=== PATIENT | male | born 1970 | race Caucasian/White ===

== ENCOUNTER 2018-01-06 14:45 | Emergency (ER) | payer OTHER ==
--- OUTSIDE RECORDS SUMMARY | 2018-01-06 15:01 | XMS REPORT ---
:1970 External Reference #:[id number] Demographics Home Phone [phone] Mobile Phone [phone] Preferred Language Citizen Of The [place] Marital Status Declined to Specify/Unknown Muslim Affiliation Unknown Race White Ethnic Group Declined to Specify/Unknown Author Organization [facility] Address [address] [place] [address] Phone [phone] Care Team Providers Name Role Phone HCP given Primary Care Physician Unavailable Payers Type Date Identification Numbers Payment Provider Subscriber Commercial Effective: Policy Number: [id number] [facility] Patti Lerma 2017 [place] PayID: [id number] [place] [address] Medigap Part B Effective: 2017 Policy Number: [id number] Medicaid Patti Lerma PayID: [id number] [place] [address] Problems Date Description Provider Status Onset: 2018 Carpal tunnel syndrome of right wrist Shaq Vitale M.D. Active Onset: 2018 Carpal tunnel syndrome of left wrist Shaq Vitale M.D. 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 Cigarette Use Does Not Smoke Cigarettes Cigarette Use Denies Cigarette Use Cigars Current Cigar Smoker, Smokes An Occasional Cigar ETOH Use Drinks Alcohol Occasionally Daily Caffeine Soda/Coffee 4/day Contraceptive Methods Current methods of control used include condoms Age 1st [place] First intercourse was at age 16 STD's Has had gential warts Allergies, Adverse Reactions, Alerts Date Description Reaction Status Severity Comments 03/31/2006 NKDA active Medications Medication Date Status Form Strength Qnty SIG Indications Ordering Provider Omeprazole 12/27/ Active Capsules DR 40mg Take One Unknown 2017 Capsule By Mouth Two Times A Day Sucralfate 12/27/ Active Tablets 1gm Take One Unknown 2017 Tablet By Mouth Four Times A Day Imiquimod 08/27/ Active Cream 5% 1Box apply to 7.8 [facility] [place] [address] [facility] 3x/wk M.D. for up to 16 wks. apply before bed and wash off after 6-10hrs; for genital warts Lisinopril-Hyd 06/18/ Active Tablets 10-12.5mg 90tab Take One I10 Winifred rochlorothiazi 2014 s Tablet By Shaq Mouth Every M.D. Morning For High Blood Pressure Amoxicillin 05/25/ Hx Tablets 500mg 60tab 2 by mouth J01.90 Winifred 2016 - s three times [place], 06/09/ a day for .D. 2016 10 days for sinusitis; start this if not better by early next week Fluticasone 11/24/ Hx Suspension 50mcg/Act 16uni 2 sprays J31.0 Silcolee ann , Propionate 2016 - ts into each [place] 05/24/ nostril M.D. 2016 once daily for nasal congestion Lisinopril 02/06/ Hx Tablets 10mg 90tab 1 tab by I10 Winifred, 2014 - s mouth every [place], 06/18/ morning; M.D. 2014 for high blood pressure Lisinopril 09/25/ Hx Tablets 10mg 90tab 1/2 tab by 401.1 Winifred 2014 - s mouth every [place], 12/25/ morning for M.D. 2014 1 week then increase to 1 pill daily if tolerating well; for high blood pressure Tramadol HCL 04/20/ Hx Tablets 50mg 60tab 1-2 by Winifred 2013 - s mouth every [place], 09/24/ 6 hours as M.D. 2014 needed for pain Condylox 04/16/ Hx Solution 0.5% 3.500 [facility] B07.[facility] - ml [facility] 08/27/ twice M.D. 2016 a day for 3 days in a row, then rest for 4 days and repeat this cycle for up to 4 cycles No Active 01/17/ Hx Unknown Medications 2013 - 2013 No Active 01/27/ Hx Unknown Medications 2012 - 2012 Condylox 01/27/ Hx Solution 0.5% 3.500 Apply To 078. Winifred, 2012 - ml Affected Shaq, 01/16/ Areas bid M.D. 2013 For 3 Days In A Row, Then Rest For 4 Days And Repeat This Cycle For Up To 4 Cycles Prednisone 01/05/ Hx Tablets 10mg 56tab 6 po qam 692.6 Winifred, 2010 - s for 5 days Shaq, then 4 po M.D. 2010 qam for 3 days then 2 po qam for 3 days then 1 po qam for 3 days then d/c Fluocinonide 01/05/ Hx Cream 0.05% 30gm apply a 692.6 Winifred, 2010 - thin layer Shaq, to affected M.D. 2010 areas bid until clear; avoid using on face Condylox 04/22/ Hx Solution 0.5% 3.500 Apply To 078. Winifred, 2008 - ml Affected Shaq, 05/20/ Areas bid M.D. 2008 For 3 Days In A Row, Then Rest For 4 Days And Repeat This Cycle For Up To 4 Cycles Hydrocodone/Ac 06/11/ Hx Tablets 5-325mg 60tab 1-2 po q4h 807.09 Silcoff, etaminophen 2006 - s prn for Shaq 04/21/ severe pain M.D. 2008 786.59 Condylox 06/11/2007 - Hx Solution 0.5% 3.5ml Apply To 078. Winifred, 07/11/2007 Affected Ric New Areas bid For 3 Days In A Row, Then Rest For 4 Days And Repeat This Cycle For Up To 4 Cycles Wrist Splint 03/31/2006 - Hx 2units cock-up 354.0 Siljorge, 01/27/2013 splints for Ric New both hands Medications Administered in Office Medication Date Status Form Strength Qnty SIG Indications Ordering Provider injection, Administered Injection Silcoff, kenalog, 10 mg 018 Ric New injection, Administered Injection Silcoff, kenalog, 10 mg 018 Shaq, M.D. injection, Administered Injection Silcoff, kenalog, 10 mg 017 Shaq, M.D. injection, Administered Injection Sopchak, kenalog, 10 mg 017 Adam, D.O. injection, Administered Injection Silcoff, kenalog, 10 mg 017 Shaq, M.D. injection, Administered Injection Silcoff, kenalog, 10 mg 017 Shaq, M.D. injection, Administered Injection Silcoff, kenalog, 10 mg 016 Shaq, M.D. injection, Administered Injection Silcoff, kenalog, 10 mg 016 Shaq, M.D. injection, Administered Injection Silcoff, kenalog, 10 mg 016 Shaq, M.D. injection, Administered Injection Silcoff, kenalog, 10 mg 016 Shaq, M.D. injection, Administered Injection Silcoff, kenalog, 10 mg 015 Shaq, M.D. injection, Administered Injection Silcoff, kenalog, 10 mg 015 Shaq, M.D. SC/Im Administered Injection Silcoff, Injections 015 Shaq, M.D. injection, Administered Injection Silcoff, kenalog, 10 mg 015 Shaq, M.D. injection, Administered Injection Silcoff, kenalog, 10 mg 014 Shaq, M.D. injection, Administered Injection Silcoff, kenalog, 10 mg 014 Shaq, M.D. injection, Administered Injection Silcoff, kenalog, 10 mg 013 Shaq, M.D. injection, Administered Injection Silcoff, kenalog, 10 mg 013 Shaq, M.D. injection, Administered Injection Silcoff, kenalog, 10 mg 013 Shaq, M.D. injection, Administered Injection Silcoff, kenalog, 10 mg 011 Shaq, M.D. Immunizations CPT Code Status Date Vaccine Lot # [id number] Given 12/02/2015 Adacel or Boostrix, TDaP [id number] Given 02/07/2007 Td Immunization TD-166 [id number] Refused 05/25/2017 Influenza Virus Vaccine, Quadrivalent, Split, Preservative Free Vital Signs Date Vital Result Comment 2018 BP Systolic 120 mmHg BP Diastolic 80 mmHg Height 68 inches 5'8" Weight 228.00 lb BMI (Body Mass Index) 34.7 kg/m2 08/13/2017 BP Systolic 138 mmHg BP Diastolic 84 mmHg 08/11/2017 BP Systolic 142 mmHg BP Diastolic 88 mmHg Weight 240.00 lb with sneakers 05/25/2017 BP Systolic 124 mmHg BP Diastolic 84 mmHg Height 68 inches 5'8" Weight 235.00 lb BMI (Body Mass Index) 35.7 kg/m2 02/23/2017 BP Systolic 136 mmHg BP Diastolic 80 mmHg Weight 226.00 lb 11/24/2016 BP Systolic 122 mmHg BP Diastolic 80 mmHg Weight 229.00 lb with shoes 08/24/2016 BP Systolic 138 mmHg BP Diastolic 78 mmHg Height 67.75 inches 5'7.75" Weight 238.00 lb BMI (Body Mass Index) 36.5 kg/m2 05/25/2016 BP Systolic 128 mmHg BP Diastolic 78 mmHg Weight 232.00 lb 02/10/2016 BP Systolic 130 mmHg BP Diastolic 80 mmHg Weight 231.00 lb 12/02/2015 BP Systolic 128 mmHg BP Diastolic 82 mmHg Height 68 inches 5'8" Weight 231.00 lb BMI (Body Mass Index) 35.1 kg/m2 10/07/2015 BP Systolic 130 mmHg BP Diastolic 80 mmHg Weight 231.00 lb 06/18/2015 BP Systolic 150 mmHg BP Diastolic 90 mmHg BP Systolic Recheck 148 mmHg R arm sitting BP Diastolic Recheck 100 mmHg R arm sitting Height 67.75 inches 5'7.75" Weight 229.00 lb BMI (Body Mass Index) 35.1 kg/m2 02/06/2015 BP Systolic 171 mmHg BP Diastolic 102 mmHg Heart Rate 74 /min Weight 212.00 lb 09/25/2014 BP Systolic 152 mmHg BP Diastolic 90 mmHg BP Systolic Recheck 156 mmHg R arm sitting BP Diastolic Recheck 90 mmHg R arm sitting Height 69 inches 5'9" shoes on Weight 217.00 lb shoes on BMI (Body Mass Index) 32.0 kg/m2 04/16/2014 BP Systolic 146 mmHg BP Diastolic 86 mmHg Weight 203.00 lb 01/17/2014 BP Systolic 148 mmHg BP Diastolic 90 mmHg BP Systolic Recheck 148 mmHg R arm sitting BP Diastolic Recheck 86 mmHg R arm sitting Height 67.5 inches 5'7.50" Weight 199.00 lb BMI (Body Mass Index) 30.7 kg/m2 10/09/2013 BP Systolic 164 mmHg BP Diastolic 90 mmHg Weight 202.00 lb 05/31/2013 BP Systolic 128 mmHg BP Diastolic 80 mmHg Height 67.75 inches 5'7.75" Weight 216.00 lb BMI (Body Mass Index) 33.1 kg/m2 01/27/2013 BP Systolic 126 mmHg BP Diastolic 68 mmHg Height 68.75 inches 5'8.75" Weight 224.00 lb BMI (Body Mass Index) 33.3 kg/m2 07/08/2012 BP Systolic 130 mmHg BP Diastolic 90 mmHg Weight 238.00 lb Last Menstrual Period 0 04/13/2011 BP Systolic 130 mmHg BP Diastolic 80 mmHg Body Temperature 98.2 F Weight 215.50 lb 2011 Body Temperature 98.6 F Height 68 inches 5'8" Weight 207.00 lb BMI (Body Mass Index) 31.5 kg/m2 Last Menstrual Period 0 04/22/2009 BP Systolic 130 mmHg BP Diastolic 88 mmHg BP Systolic Recheck 140 mmHg R arm sitting BP Diastolic Recheck 90 mmHg R arm sitting Weight 229.00 lb 06/11/2007 BP Systolic 154 mmHg BP Diastolic 86 mmHg Height 69 inches 5'9" Weight 229.00 lb BMI (Body Mass Index) 33.8 kg/m2 02/07/2007 BP Systolic 138 mmHg BP Diastolic 102 mmHg Height 69 inches 5'9" 05/04/2006 BP Systolic 138 mmHg BP Diastolic 98 mmHg BP Systolic Recheck 134 mmHg R arm sitting BP Diastolic Recheck 88 mmHg R arm sitting Height 69 inches 5'9" Weight 231.50 lb BMI (Body Mass Index) 34.2 kg/m2 03/31/2006 BP Systolic 146 mmHg BP Diastolic 100 mmHg BP Systolic Recheck 158 mmHg R arm sitting BP Diastolic Recheck 96 mmHg R arm sitting Heart Rate 80 /min reg Respiratory Rate 16 /min not laboured Height 69 inches 5'9" Weight 230.00 lb BMI (Body Mass Index) 34.0 kg/m2 Results Test Date Test Result H/L Range Note Laboratory test finding 12/27/2017 Troponin-I < 0.015 ng/mL 1, 2 CBS W/Automated Diff 12/27/2017 White Blood Count 7.6 K/uL 3.4-10.5 1 Red Blood Count 4.91 M/uL 4.20-5.80 1 Hemoglobin 15.7 gm/dL 12.8-17.0 1 Hematocrit 44.3 % 38.0-48.0 1 Mean Cell Volume 90.2 fl 80.0-96.0 1 Mean Corpuscular HGB 32.0 pg 27.0-33.0 1 Mean Corpuscular HGB Conc 35.4 g/dL 31.7-36.0 1 Platelet Count 250 K/uL 155-360 1 Red Cell Distri Width SD 41.9 fl 36-51 1 Red Cell Distri Width %CV 13.1 % 11.6-15.8 1 Mean Platelet Volume 9.7 fL 6.6-10.6 1 Neut% 75.8 % High 33.0-73.0 1 Lymph % 14.2 % Low 20.0-42.0 1 [place] % 8.7 % 0.0-10.0 1 Eo% 0.8 % 0.0-6.6 1 Bas% 0.5 % 0.0-1.1 1 Neut# 5.77 K/uL 1.8-7.0 1 Lymph # 1.08 K/uL 1.0-4.0 1 [place] # 0.66 K/uL 0.0-0.8 1 Eos # 0.06 K/uL 0.0-0.5 1 Baso # 0.04 K/uL 0.0-0.1 1 Basic Metabolic Panel 10/07/2015 Sodium 137 mmol/L 133-145 Potassium 4.4 mmol/L 3.5-5.0 Chloride 104 mmol/L 101-111 Co2 Carbon Dioxide 26 mmol/L 22-32 Anion Gap 7 mmol/L 2-11 Glucose 98 mg/dL 70-100 Blood Urea Nitrogen 23 mg/dL 6-24 Creatinine 1.00 mg/dL 0.67-1.17 BUN/Creatinine Ratio 23.0 High 8-20 Calcium 9.4 mg/dL 8.6-10.3 Egfr Non- 80.8 >60 Egfr 103.9 >60 3 Laboratory test finding 10/07/2015 Wound Culture/Sensi SEE RESULT BELOW 4 Laboratory test finding 11/27/2014 Wound Culture/Sensi SEE RESULT BELOW 5 Laboratory test finding 04/17/2014 Blood Culture No Growth 6 Basic Metabolic Panel 04/17/2014 Sodium 135 mmol/L 133-145 Potassium 4.0 mmol/L 3.7-5.6 Chloride 102 mmol/L 101-111 Co2 Carbon Dioxide 26 mmol/L 22-32 Anion Gap 7 mmol/L 2-11 Glucose 95 mg/dL 70-100 Blood Urea Nitrogen 18 mg/dL 6-24 Creatinine 0.94 mg/dL 0.67-1.17 BUN/Creatinine Ratio 19.1 8-20 Calcium 9.3 mg/dL 8.6-10.3 Egfr Non- 87.2 >60 Egfr 112.1 >60 7 Laboratory test finding 04/17/2014 Erythrocyte Sed Rate 7 mm/Hr 0-14 Mikayla (Anti-Nuclear AB) Screen Negative Negative Cold Agglutinin Screen/Titer 04/17/2014 Cold Agglutinin Screen Negative Negative Cold Agglutinin Titer TNP titer 8 CBC Auto Diff 04/17/2014 White Blood Count 5.6 10^3/uL 4.8-10.8 Red Blood Count 4.62 10^6/uL 4.0-5.4 Hemoglobin 14.5 g/dL 14.0-18.0 Hematocrit 42 % 42-52 Mean Corpuscular Volume 92 fL 80-94 Mean Corpuscular Hemoglobin 31 pg 27-31 Mean Corpuscular HGB Conc 34 g/dL 31-36 Red Cell Distribution Width 13 % 10.5-15 Platelet Count 259 10^3/uL 150-450 Mean Platelet Volume 8 um3 7.4-10.4 Abs Neutrophils 3.9 10^3/uL 1.5-7.7 Abs Lymphocytes 1.2 10^3/uL 1.0-4.8 Abs Monocytes 0.4 10^3/uL 0-0.8 Abs Eosinophils 0.1 10^3/uL 0-0.6 Abs Basophils 0.1 10^3/uL 0-0.2 Abs Nucleated RBC 0 10^3/uL Granulocyte % 69.3 % 38-83 Lymphocyte % 20.9 % Low 25-47 Monocyte % 7.5 % 1-9 Eosinophil % 1.2 % 0-6 Basophil % 1.1 % 0-2 Nucleated Red Blood Cells % 0.1 Blood Culture 04/17/2014 Blood Culture No Growth 9 Laboratory test finding 03/31/2006 TSH 0.99 MIU/ML 0.34-5.60 10 Basic Metabolic Panel 03/31/2006 One Over Creatinine 1.00 10 Anion Gap 7.0 mmol/L 2-11 10, 11 BUN 15 mg/dL 6-24 10 Calcium 10.1 mg/dL 8.7-10.2 10 Chloride 100 mmol/L Low 101-111 10 Co2 (Carbon Dioxide) 31.0 mmol/L 22-32 10 Glucose 99 mg/dL 70-105 10 Potassium 4.3 mmol/L 3.5-5.0 10 Sodium 138 mmol/L 135-145 10 BUN/Creatinine Ratio 15.0 8-20 10 Creatinine 1.0 mg/dL 0.5-1.4 10 CBC With Electronic Diff 03/31/2006 White Blood Count 5.4 CUMM 4.8-10.8 10 Abs Basophils 0 0-0.2 10 Abs Eosinophils 0.1 0-0.6 10 Absolute Neutrophil Count 3.3 1.5-7.7 10 Abs Lymphs 1.6 1.0-4.8 10 Abs Mononuclear 0.5 0-0.8 10 Basophil % 0.8 % 0-2 10 Hematocrit 47 % 42-52 10 Hemoglobin 16.2 g/dL 14.0-18.0 10 Eosinophil % 1.2 % 0-6 10 Gran % 60.1 % 38-83 10 Lymph % 29.2 % 20-45 10 Mean Corpuscular HGB Cone 35 g/dL 32-36 10 Mean Corpuscular Hemoglob 31 pg 27-31 10 Mean Corpuscular Volume 90 um3 80-94 10 Mean Platelet Volume 8.4 um3 7.4-10.4 10 Mononuclear % 8.7 % 1-9 10 Platelet Count 282 CUMM 150-450 10 Red Cell Count 5.21 CUMM 4.6-6.2 10 Redcell Distribution WDTH 13 % 10.5-15 10 Lipid Profile 03/31/2006 Cholesterol 206 mg/dL High Less Than 200 10, 12 (Trig/Chol/HDL) Triglyceride 64 mg/dL 40-200 10 High Density Lipoprotein 57 mg/dL 40-60 10 Low Density Lipoprotein 136 mg/dL High Less Than 100 10, 13 Cholesterol/HDL Ratio 3.61 AVERAGE 1-4.97 10 1 CP 2 0.0 - 0.045 ng/mL: Normal 0.046 - 0.5 ng/mL: Suggestive 0.6 - 1.5 ng/mL: Consistent 3 Because ethnic data is not always readily available, this report includes an eGFR for both -Americans and non- Americans. The National Kidney Disease Education Program (NKDEP) does not endorse the use of the MDRD equation for patients that are not between the ages of 18 and 70, are , have extremes of body size, muscle mass, or nutritional status, or are non- or non-. According to the National Kidney Foundation, irrespective of diagnosis, the stage of the disease is based on the level of kidney function: Stage Description GFR(mL/min/1.73 m(2)) 1 Kidney damage with normal or decreased GFR 90 2 Kidney damage with mild decrease in GFR 60-89 3 Moderate decrease in GFR 30-59 4 Severe decrease in GFR 15-29 5 Kidney failure <15 (or dialysis) 4 SEE RESULT BELOW Name: PATTI LERMA : [address]: Shaq Vitale MD Acct: [id number] Unit: [id number] AGE: 45 Location: [facility] Re10/07/15 SEX: M Status: REG REF SPEC: [id number] ANGEL LUIS: 10/07/15-[address]: Shaq Vitale MD REQ: [id number] RECD: 10/07/15-1311 STATUS: COMP _ SOURCE: WOUND SPDESC: ORDERED: Culture Stain Specimen Description PUS FROM BACK ABSCESS Procedure Result Reported Site Wound/Misc Gram Stain Final 10/07/15- 1558 ML 3+ Neutrophils 1+ Nucleated Cells 1+ Epithelial Cells 1+ Gram Positive Cocci Wound/Misc Culture Final 10/09/15- 1039 ML No Growth Day 2 * ML - MAIN LAB ([facility]) . END OF REPORT * ML=Testing performed at Main Lab DEPARTMENT OF PATHOLOGY, [address] [place] [address] Hever Dyer M.D. Director [facility] # [id number] 5 SEE RESULT BELOW Name: PATTI LERMA : [address]: Elysia Pollard MD Acct: [id number] Unit: [id number] AGE: 44 Location: [facility] Re11/27/14 SEX: M Status: DEP ER SPEC: [id number] ANGEL LUIS: 11/27/14-[address]: Gogo Butler NP REQ: [id number] RECD: 11/27/14 STATUS: COMP [facility] DR: Elysia Vitale MD _ SOURCE: TERE SPDESC: ORDERED: Culture Stain Procedure Result Verified Site Wound/Misc Gram Stain Final 11/27/14- 1506 ML No Neutrophils Observed 1+ Gram Positive Cocci in Chains, resembling Strep 1+ Gram Negative Bacilli 1+ Gram Positive Bacilli Wound/Misc Culture Final 12/02/14- 0958 ML Organism 1 STREPTOCOCCUS INTERMEDIUS Quantity 3+ Organism 2 EIKENELLA CORRODENS Quantity 2+ Organism 3 NORMAL GLEN Quantity 2+ EIKENELLA CORRODENS- PRESUMPTIVE IDENTIFICATION 1. STREPTOCOCCUS INTERMEDIUS M.I.C. RX --------- ------ Chloramphenicol 2 S Ampicillin 0.25 S Penicillin 0.12 S Meropenem <=0.06 S Cefepime 0.5 S * Cefotaxime <=0.25 S CONTINUED ON NEXT PAGE * ML=Testing performed at Main Lab DEPARTMENT OF PATHOLOGY, [address] [place] [address] Hever Dyer M.D. Director [facility] # [id number] Patient: PATTI LERMA [id number] (Continued) Specimen: [id number] Collected: 11/27/14-999 Received: 11/27/14-1222 (Continued) Procedure Result Verified Site Wound/Misc Culture Final (continued) 12/02/14- 957 06. STREPTOCOCCUS INTERMEDIUS (continued) M.I.C. RX --------- ------ Ceftriaxone <=0.25 S Levofloxacin 1 S Azithromycin <=0.25 S Clindamycin <=0.06 S Erythromycin <=0.06 S Tetracycline <=0.50 S Vancomycin 1 S * ML - MAIN LAB ([facility]) . END OF REPORT * ML=Testing performed at Main Lab DEPARTMENT OF PATHOLOGY, [address] [place] [address] Hever Dyer M.D. Director [place] # [id number] 6 RUN DATE: 04/22/14 [facility] LAB LIVE PAGE 1 RUN TIME: [address] [place] [address] Specimen Inquiry Name: PATTI LERMA : [address]: Shaq Vitale MD Acct: [id number] Unit: [id number] AGE: 44 Location: LAB Re04/17/14 SEX: M Status: REG REF SPEC: [id number] ANGEL LUIS: 04/17/[address] [facility] [address]: Shaq Vitale MD REQ: [id number] RECD: 04/17/14 STATUS: COMP _ SOURCE: BLOOD,VENO SPDESC: ORDERED: Blood Cult QUERIES: Medent Number [id number] Procedure Result Verified Site Aerobic Culture Bottle Final 04/22/14- 1245 ML No Growth Day 5 Anaerobic Culture Bottle Final 04/22/14- 1245 ML No Growth Day 5 END OF REPORT * ML=Testing performed at Main Lab DEPARTMENT OF PATHOLOGY, [address] [place] [address] Hever Dyer M.D. Director [facility] # [id number] 7 Because ethnic data is not always readily available, this report includes an eGFR for both -Americans and non- Americans. The National Kidney Disease Education Program (NKDEP) does not endorse the use of the MDRD equation for patients that are not between the ages of 18 and 70, are , have extremes of body size, muscle mass, or nutritional status, or are non- or non-. According to the National Kidney Foundation, irrespective of diagnosis, the stage of the disease is based on the level of kidney function: Stage Description GFR(mL/min/1.73 m(2)) 1 Kidney damage with normal or decreased GFR 90 2 Kidney damage with mild decrease in GFR 60-89 3 Moderate decrease in GFR 30-59 4 Severe decrease in GFR 15-29 5 Kidney failure <15 (or dialysis) 8 Reflex test not required. Test Performed by: [place] [address] Captain'S Assistant: Jimi Amador M.D. 9 RUN DATE: 04/22/14 [facility] LAB LIVE PAGE 1 RUN TIME: [address] [place] [address] Specimen Inquiry Name: PATTI LERMA : [address]: Shaq Vitale MD Acct: [id number] Unit: [id number] AGE: 44 Location: LAB Re04/17/14 SEX: M Status: REG REF SPEC: [id number] ANGEL LUIS: 04/17/[address] [facility] DR: Shaq Vitale MD REQ: [id number] RECD: 04/17/14 STATUS: COMP _ SOURCE: BLOOD,VENO SPDESC: ORDERED: Blood Cult QUERIES: Medent Number [id number] Procedure Result Verified Site Aerobic Culture Bottle Final 04/22/14- 1251 ML No Growth Day 5 Anaerobic Culture Bottle Final 04/22/14- 1251 ML No Growth Day 5 END OF REPORT * ML=Testing performed at Main Lab DEPARTMENT OF PATHOLOGY, [address] [place] [address] Hever Dyer M.D. Director [facility] # [id number] 10 FASTING 11 Anion gap measurement may be of limited value in the presence of any alkalosis, especially in a combined acid base disorder. . 12 Classification: Borderline High . 13 CALCULATED LDL APPROXIMATES THE VALUE OF A DIRECT LDL MEASUREMENT. Classification: Borderline High . Procedures Date CPT Code Description Status 2018 Inj Therapeutic, Carpal Tunnel Completed 08/13/2017 51357 X-Ray Hand Three Or More Views Completed 08/13/2017 Inj Therapeutic, Carpal Tunnel Completed 05/25/2017 Inj Therapeutic, Carpal Tunnel Completed 02/23/2017 Inj Therapeutic, Carpal Tunnel Completed 11/24/2016 Inj Therapeutic, Carpal Tunnel Completed 08/24/2016 Inj Therapeutic, Carpal Tunnel Completed 08/24/2016 65736 Remove Skin Tags Up To 15 Completed 05/25/2016 Inj Therapeutic, Carpal Tunnel Completed 02/10/2016 Inj Therapeutic, Carpal Tunnel Completed 12/02/2015 Inj Therapeutic, Carpal Tunnel Completed 10/07/2015 Inj Therapeutic, Carpal Tunnel Completed 10/07/2015 54098 I & D Abscess Simple Completed 06/18/2015 Inj Therapeutic, Carpal Tunnel Completed 02/06/2015 98549 SC/Im Injections Completed 02/06/2015 Inj Therapeutic, Carpal Tunnel Completed 09/25/2014 Inj Therapeutic, Carpal Tunnel Completed 01/17/2014 Inj Therapeutic, Carpal Tunnel Completed 10/09/2013 Inj Therapeutic, Carpal Tunnel Completed 05/31/2013 Inj Therapeutic, Carpal Tunnel Completed 01/27/2013 Inj Therapeutic, Carpal Tunnel Completed 04/12/2009 0 Payment Completed 01/10/2009 06853 Apply Splint Finger Static Completed 01/10/2009 38372 Repair Superfic Wound < 2.6CM Completed Scalp/Neck/Axil/Genit/Trunk/Extr 02/07/2007 22381 Layer Closure Wound 2.6-7.5CM Completed Scalp/Axillae/Trunk/Extremities 02/07/2007 60078 Layer Closure Wound 2.6-7.5CM Completed Scalp/Axillae/Trunk/Extremities Encounters Type Date Location Provider CPT E/M Dx Office Visit 2018 3:00p Main Office Shaq Vitale M.D. 08601 G56.01 G56.02 R10.31 R10.823 K21.9 Office Visit 08/13/2017 2:45p Main Office Shaq Vitale M.D. 47580 G56.01 G56.02 M79.641 G56.03 Office Visit 08/11/2017 4:00p Main Office Shaq Vitale M.D. 61846 G56.01 G56.02 M79.641 Office Visit 05/25/2017 4:30p Main Office Shaq Vitale M.D. 78168 G56.01 G56.02 J31.0 J01.90 Z23 G56.03 Z28.21 Office Visit 02/23/2017 4:00p Main Office Adam Bailey D.O. 90455 G56.01 G56.02 L91.8 G56.03 Office Visit 11/24/2016 2:30p Main Office Shaq Vitale M.D. 77028 G56.01 G56.02 J31.0 Office Visit 08/24/2016 4:45p Main Office Shaq Vitale M.D. 61915 G56.01 G56.02 L91.8 Office Visit 05/25/2016 4:00p Main Office Shaq Vitale M.D. 06073 G56.01 G56.02 Office Visit 02/10/2016 11:15a Main Office Shaq Vitale M.D. 57218 G56.01 G56.02 Office Visit 12/02/2015 2:30p Main Office Shaq Vitale M.D. 50780 G56.01 G56.02 Z23 Office Visit 10/07/2015 10:15a Main Office Shaq Vitale M.D. 79858 L02.212 G56.01 G56.02 I10 M77.01 M77.02 Office Visit 06/18/2015 2:15p Main Office Shaq Vitale M.D. 29186 G56.01 G56.02 I10 M77.01 M77.02 Office Visit 02/06/2015 2:15p Main Office Shaq Vitale M.D. 31860 354.0 401.1 Office Visit 09/25/2014 8:30a Main Office Shaq Vitale M.D. 81599 354.0 401.1 Office Visit 04/16/2014 4:00p Main Office Shaq Vitale M.D. 47304 703.8 729.5 354.0 Office Visit 01/17/2014 4:30p Main Office Shaq Vitale M.D. 96160 354.0 Office Visit 10/09/2013 4:45p Main Office Shaq Vitale M.D. 62407 354.0 Office Visit 05/31/2013 2:00p Main Office Shaq Vitale M.D. 05348 354.0 Office Visit 01/27/2013 10:00a Main Office Shaq Vitale M.D. 71523 354.0 078.19 Office Visit 07/08/2012 3:45p Main Office Shaq Vitale M.D. 00872 354.0 Office Visit 04/13/2011 11:15a Main Office Shaq Vitale M.D. 25793 682.3 354.0 Office Visit 2011 12:55p Main Office Shaq Vitale M.D. 60291 692.6 Office Visit 04/22/2009 4:45p Main Office Shaq Vitale M.D. [id number] 078.19 238.2 078.19 Office Visit 06/11/2007 10:00a Main Office Shaq Vitale M.D. 68018 807.09 786.59 599.7 401.1 995.1 078.19 Office Visit 05/04/2006 8:45a Main Office Shaq Vitale M.D. [id number] 354.0 401.1 Office Visit 03/31/2006 10:45a Main Office Shaq Vitale M.D. [id number] 782.0 354.0 401.1 V77.91 Plan of Care 2018 - Shaq Vitael M.D.G56.01 Carpal tunnel syndrome, right upper limbComments:An injection w/ 1.5cc 1% lidocaine (w/o epi) and 40mg Kenalog (40mg /ml) was injected into the carpaltunnel using a 25G 1.5" needle, injecting at an approx 45 degree angle, entering at the distal wristcrease and aiming the needle towards the tip of the 3rd finger after having the pt flex the 3rd finger against resistance to more readily identify the palmaris longus tendon. Injection was done on the ulnar side of this tendon. Pt did not experience any finger pain w/ the injection.G56.02 Carpal tunnel syndrome, left upper limbComments:An injection w/ 1.5cc 1% lidocaine (w/o epi) and 40mg Kenalog (40mg /ml) was injected into the carpaltunnel using a 25G 1.5" needle, injecting at an approx 45 degree angle, entering at the distal wristcrease and aiming the needle towards the tip of the 3rd finger after having the pt flex the 3rd finger against resistance to more readily identify the palmaris longus tendon. Injection was done on the ulnar side of this tendon. Pt did not experience any finger pain w/ the injection.R10.31 Right lower quadrant painNew Xrays:CT Abdomen and Pelvis w/ ContrastComments:Strongly suspicious for an early acute appendicitis. I advised him of this, of the serious life threatening nature of it and urged him start eval now but he adamant;y refused, noting it was his birthday and he had dinner plans and there was no way he was going to miss out. I advised him this was a terrible idea, that he really should not eat anything until we evaluate this further and figure out whatis going on. He refused but did agree to get testing tomorrow, and did agree to go to ER if Sxs worsening prior ot hearing back from us. I also advised him that if he did go out for supper tonight against my advice, that he should stop eating after that, also nothing to drink exc a little water tonight.Follow up:As we discussed, I am highly concerned that your belly pain is a sign of appendicitis, a life threatening emergency. The most ideal situation is to not eat or drink, get bloodwork and imaging now. You were unwilling to do this but agreed to let us schedule this for you tomorrow. We will call you tomorrow morning about it. If you don't hear from us by 10am please call us and talk to Filiberto. If pain gets worse tonight or tomorrow then you need to get to an emergency room CHANELLE.R10.823 Right lower quadrant rebound abdominal bzitolcecoP68.9 Gastro- esophageal reflux disease without esophagitis
[2018-01-06 16:32] LABS: ABS Basophils 0.1 10^3/ul (0-0.2); ABS Eosinophils 0 10^3/ul (0-0.6); ABS Lymphocytes 1.4 10^3/ul (1.0-4.8); ABS Monocytes 0.6 10^3/ul (0-0.8); ABS Neutrophils 6.4 10^3/ul (1.5-7.7); ABS Nucleated RBC 0 10^3/ul; Eosinophil % 0.4 % (0-6); Hematocrit 44 % (42-52); Hemoglobin 15.2 g/dl (14.0-18.0); Lymphocyte % 16.6 % (25-47); Mean Corpuscular HGB Conc 35 g/dl (31-36); Mean Corpuscular Hemoglobin 32 pg (27-31); Mean Corpuscular Volume 92 fL (80-94); Mean Platelet Volume 7.9 um3 (7.4-10.4); Nucleated Red Blood Cells % 0.1; Platelet Count 260 10^3/ul (150-450); Red Blood Count 4.77 10^6/ul (4.00-5.40); Red Cell Distribution Width 13 % (10.5-15); White Blood Count 8.5 10^3/ul (3.5-10.8)
[2018-01-06 16:44] LABS: INR 0.91 (0.77-1.02)
[2018-01-06 16:49] LABS: EGFR Non-African American 92.4 (>60)
--- NOTE | 2018-01-06 16:52 | ED ---
Abdominal Pain/Male - HPI Summary HPI Summary: This is diana Hermann Bucio documenting for attending Dr. Geo M.D. Pt is a 48 y/o M w/ c/o right abdominal pain/soreness. Pt was seen by PCP yesterday to get shots for carpel tunnel. While in the room, Pt noted some abdominal pain/ tenderness. PCP performed a physical exam and noted tenderness in RLQ, which resulted in the suggestion for a CT ab/pel. CT scan raised concerns of appendicitis, which brought him to ED. However, in room Pt denies any abdominal pain, nausea, vomiting. He states he is, "barely even sore". Pt reports HTN and states he only ate a cucumber today. - History of Current Complaint Chief Complaint: EDAbdPain Stated Complaint: POSSIBLE APPENDICITIS Time Seen by Provider: 01/06/18 15:28 Hx Obtained From: Patient Onset/Duration: Lasting Days - one day ago, Resolved Severity Currently: None - pain is denied Pain Intensity: 0 Pain Scale Used: 0-10 Numeric - 0/10 Radiates: No Character: Other: - pain denied Aggravating Factor(s): Nothing Alleviating Factor(s): Nothing Associated Signs And Symptoms: Negative: Vomiting, Diarrhea - Allergies/Home Medications Allergies/Adverse Reactions: Allergies Allergy/AdvReac Type Severity Reaction Status Date / Time No Known Allergies Allergy Verified 11/27/14 09:49 Home Medications: Home Medications Lisinopril/HCTZ 04/01.5(NF) [Zestoretic 04/01.5(NF)] 1 tab PO QAM 01/06/18 [ History Confirmed 01/06/18] Omeprazole CAP* [Prilosec CAP* 20 MG] 40 mg PO BID 01/06/18 [History Confirmed 01/06/18] Sucralfate TAB* [Carafate*] 1 gm PO QID 01/06/18 [History Confirmed 01/06/18] PMH/Surg Hx/FS Hx/Imm Hx Endocrine/Hematology History: Denies: Hx Diabetes Cardiovascular History: Denies: Hx Hypertension History: Denies: Hx Renal Disease Infectious Disease History: No Infectious Disease History: Denies: History Other Infectious Disease, Traveled Outside the [place] in Last 30 Days - Family History Known Family History: Negative: Blood Disorder - Social History Alcohol Use: Daily Alcohol Amount: "couple beers" Substance Use Type: Reports: None Smoking Status (MU): Never Smoked Tobacco Review of Systems All Other Systems Reviewed And Are Negative: Yes Physical Exam - Summary Physical Exam Summary: GENERAL: Patient is a well developed and nourished male who is lying comfortable in the stretcher. Patient is not in any acute respiratory distress. HEAD AND FACE: Normocephalic EYES: PERRLA, EOMI x 2. EARS: Hearing grossly intact. MOUTH: Oropharynx within normal limits. NECK: Supple, trachea is midline, no adenopathy, no JVD, no carotid bruit. CHEST: Symmetric, no tenderness at palpation LUNGS: Clear to auscultation bilaterally. No wheezing or crackles. CVS: Regular rate and rhythm, S1 and S2 present, no murmurs or gallops appreciated. ABDOMEN: Soft. No TTP is noted. Bowel sounds are normal. No abdominal abnormal pulsations. EXTREMITIES: Full ROM in all major joints, no edema, no cyanosis or clubbing. NEURO: Alert and oriented x 3. No acute neurological deficits. Speech is normal and follows commands. SKIN: Dry and warm Triage Information Reviewed: Yes Vital Signs On Initial Exam: Initial Vitals Temp Pulse Resp BP Pulse Ox 99.5 F 74 16 153/96 100 01/06/18 14:53 01/06/18 14:53 01/06/18 14:53 01/06/18 14:53 01/06/18 14:53 Vital Signs Reviewed: Yes Diagnostics - Vital Signs Vital Signs Temp Pulse Resp BP Pulse Ox 01/06/18 14:53 99.5 F 74 16 153/96 100 - Laboratory Lab Results: Lab Results 01/06/18 01/06/18 01/06/18 Range/Units 16:20 16:20 16:20 WBC 8.5 (3.5-10.8) 10^3/ul RBC 4.77 (4.00-5.40) 10^6/ul Hgb 15.2 (14.0-18.0) g/dl Hct 44 (42-52) % MCV 92 (80-94) fL MCH 32 H (27-31) pg MCHC 35 (31-36) g/dl RDW 13 (10.5-15) % Plt Count 260 (150-450) 10^3/ul MPV 7.9 (7.4-10.4) um3 Neut % (Auto) 75.6 (38-83) % Lymph % (Auto) 16.6 L (25-47) % Tift % (Auto) 6.6 (0-7) % Eos % (Auto) 0.4 (0-6) % Baso % (Auto) 0.8 (0-2) % Absolute Neuts (auto) 6.4 (1.5-7.7) 10^3/ul Absolute Lymphs (auto) 1.4 (1.0-4.8) 10^3/ul Absolute Monos (auto) 0.6 (0-0.8) 10^3/ul Absolute Eos (auto) 0 (0-0.6) 10^3/ul Absolute Basos (auto) 0.1 (0-0.2) 10^3/ul Absolute Nucleated RBC 0 10^3/ul Nucleated RBC % 0.1 INR (Anticoag Therapy) 0.91 (0.77-1.02) APTT 28.0 (26.0-36.3) seconds Sodium 135 (135-145) mmol/L Potassium 4.7 (3.5-5.0) mmol/L Chloride 98 L (101-111) mmol/L Carbon Dioxide 31 (22-32) mmol/L Anion Gap 6 (2-11) mmol/L BUN 17 (6-24) mg/dL Creatinine 0.88 (0.67-1.17) mg/dL Est GFR ( Amer) 111.8 (>60) Est GFR (Non-Af Amer) 92.4 (>60) BUN/Creatinine Ratio 19.3 (8-20) Glucose 112 H (70-100) mg/dL Calcium 9.9 (8.6-10.3) mg/dL Total Bilirubin 0.70 (0.2-1.0) mg/dL AST 28 (13-39) U/L ALT 52 (7-52) U/L Alkaline Phosphatase 99 (34-104) U/L C-React Prot High Sens 22.17 H (<2.00) mg/L Total Protein 7.3 (6.4-8.9) g/dL Albumin 4.4 (3.2-5.2) g/dL Globulin 2.9 (2-4) g/dL Albumin/Globulin Ratio 1.5 (1-3) Result Diagrams: 01/06/18 16:20 01/06/18 16:20 Lab Statement: Any lab studies that have been ordered have been reviewed, and results considered in the medical decision making process. - CT abd/pel CT Interpretation: No Acute Changes CT Interpretation Completed By: Radiologist - THERE IS FOCAL THICKENING OF THE APPENDIX WITH STRANDING OF THE PERIAPPENDICEAL FAT SUGGESTIVE OF EARLY ACUTE APPENDICITIS IN THE CORRECT CLINICAL SETTING. THERE IS NO LOCULATED FLUID COLLECTION TO SUGGEST ABSCESS. FATTY INFILTRATION OF THE LIVER. THIS REPORT WAS REVIEWED BY ED PHYSICIAN. Abdominal Pain Fem Course/Dx - Course Assessment/Plan: Pt is a 48 y/o M w/ c/o right abdominal pain/soreness. Pt was seen by PCP yesterday to get shots for carpel tunnel. While in the room, Pt noted some abdominal pain/tenderness. PE is reassuring. CT scan raised concerns of appendicitis, which brought him to ED. However, in room Pt denies any abdominal pain, nausea, vomiting. CT abd/pel findings are noted above. Dr. Roach was consulted. He sent down NURSES AIDE Eckenrode to consult and look over Pt. White count was found to be normal. Dr. Roach reviewed CAT scan and will see in office follow up next week. - Diagnoses Provider Diagnoses: Abdominal pain in male - Provider Notifications Discussed Care Of Patient With: Mesfin Roach Time Discussed With Above Provider: 15:54 Instructed by Provider To: Other - Dr. Roach was consulted with regards to Pt. Dr. Roach states he would send someone down to consult with and look at Pt. 16:21 -- [facility]. White count was normal. Dr. Roach reviewed CAT scan and will see Pt in office follow up next week. Discharge - Sign-Out/Discharge Documenting (check all that apply): Patient Departure - discharge - Discharge Plan Condition: Stable Disposition: HOME Patient Education Materials: Abdominal Pain (ED) Referrals: Shaq Vitale MD [Primary Care Provider] - 2 Days Additional Instructions: Return to ED for any new or worsening symptoms. - Billing Disposition and Condition Condition: STABLE Disposition: Home
[2018-01-06 17:22] VITALS: BP 138/87
--- NOTE | 2018-01-06 21:08 | CONS ---
CC: Dr. Roach; Dr. Vitale * SURGICAL CONSULTATION NOTE: DATE OF CONSULT: 01/06/18 LOCATION: This patient is seen in the emergency department of [facility] on , 01/06/18. ATTENDING PHYSICIAN: Dr. Mesfin Roach. CHIEF COMPLAINT: Right lower quadrant abdominal pain. HISTORY OF PRESENT ILLNESS: The patient is a 48-year-old male, who was seen in Dr. Vitale's office yesterday and complained of right lower quadrant abdominal pain. Apparently, the patient refused to have a CT scan yesterday. He ate a normal dinner yesterday and denied any nausea or vomiting; he denied any fever or chills; he had a normal formed stool this morning, no blood or mucus; he denies any dysuria. He states that at this time he has no abdominal pain and feels very hungry. He had a CAT scan of the abdomen and pelvis at [facility] today that revealed focal thickening of the appendix with stranding of periappendiceal fat suggestive of early acute appendicitis; there was no fluid collection to suggest abscess. His white blood cell count was 8.5 with no left shift. He has not had any previous abdominal surgery. PAST MEDICAL HISTORY: Hypertension; acid reflux. PAST SURGICAL HISTORY: None. MEDICATIONS: Include: 1. Omeprazole. 2. Sucralfate. 3. Lisinopril/hydrochlorothiazide. ALLERGIES: No known drug allergies. FAMILY HISTORY: Parents are alive and well. He states that his son had an appendectomy when he was a teenager. SOCIAL HISTORY: He is single and self-employed as a alonzo; he drinks alcohol 4 to 5 times a week and is a nonsmoker. REVIEW OF SYSTEMS: Constitutional: No fever, chills, excessive fatigue, or weight loss. Endocrine: No diabetes or thyroid disease. Respiratory: No chronic cough or dyspnea on exertion. Cardiovascular: No anginal chest pain or palpitations. Gastrointestinal: As described in history of present illness. Genitourinary: No dysuria. Musculoskeletal: No back or joint pain. Neurologic: No headache or blurred vision or areas of focal weakness. PHYSICAL EXAM: General Survey: The patient is a 48-year-old male, obese, well developed, in no acute distress. Height 68 inches, weight 235 pounds, body mass index 35.7. Blood pressure 150/90, heart rate 74, respiratory rate 16, temperature 99.5 tympanic, O2 saturation 100% on room air. Skin: Warm, dry, intact. HEENT: Benign. Neck: Supple. No cervical lymphadenopathy. Lungs: Breath sounds bilaterally clear and equal. Heart: Regular rate and rhythm. No murmurs or rubs appreciated. Abdomen: Active bowel sounds. Obese, soft, nondistended. Mild tenderness in the right lower quadrant with very deep palpation. No guarding. No rebound. No obvious masses or organomegaly. Genitalia and rectal exams deferred. Musculoskeletal: Full range of motion. Neurologic: Alert and oriented x3. Steady gait. IMPRESSION: No clinical evidence of acute appendicitis. PLAN: Discussed with Dr. Roach, who reviewed the CAT scan and Dr. Roach recommended office followup in 1 week at [facility]; the patient knows to return to the emergency department with worsening abdominal pain or any other symptoms of concern. TIME SPENT: 60 minutes with greater than 50% in [id number] history taking and coordination of care. TAMIA PARK NP [id number]/CPS #: [id number] CORNELIA
== END 2018-01-06 17:21 | disposition home or self-care (01) ==
LOC: ED 14:45
DX: R10.31 Right lower quadrant pain (principal); I10 Essential (primary) hypertension; K76.0 Fatty (change of) liver, not elsewhere classified; Z79.899 Other long term (current) drug therapy
CPT/HCPCS: 36415; 80053; 85025; 85610; 85730; 86141; 86850; 86900; 86901; 99283